=== PATIENT | male | born 1995 | race African-American/Black ===

== ENCOUNTER 2021-12-26 21:41 | Emergency (ER) | payer OTHER ==
[2021-12-26] MEDS ORDERED: VISTARIL 50 MG50 MG PO (23:33)
== END 2021-12-27 01:30 | disposition home or self-care (01) ==
LOC: EDBD 21:41 → ER1 21:41
PROVIDERS: Student in an Organized Health Care Education/Training Program
DX: F41.9 Anxiety disorder, unspecified (principal); M54.50 Low back pain, unspecified; G89.29 Other chronic pain; S00.81XA Abrasion of other part of head, initial encounter; S80.812A Abrasion, left lower leg, initial encounter; S80.811A Abrasion, right lower leg, initial encounter; F17.200 Nicotine dependence, unspecified, uncomplicated; Z86.59 Personal history of other mental and behavioral disorders; Z79.899 Other long term (current) drug therapy; X58.XXXA Exposure to other specified factors, initial encounter
CPT/HCPCS: 72100; 80307; 96372; 99283; J3410